=== PATIENT | female | born 1930 | race Hispanic/Latino ===

== ENCOUNTER 2020-03-27 11:26 | Day surgery (SDC) ==
[2020-03-27] MEDS ORDERED: COVID-19 VACC, MRNA(PFIZER)/PF 30 MCG/0.3 ML IM ONE (14:15)
[2020-04-17] MEDS ORDERED: COVID-19 VACC, MRNA(PFIZER)/PF 30 MCG/0.3 ML IM ONE (12:15)
== END 2020-03-27 11:27 | disposition home or self-care (01) ==
LOC: COVVAC 11:26
DX: Z20.822 Contact with and (suspected) exposure to COVID-19 (principal)
CPT/HCPCS: 0001A